=== PATIENT | male | born 1995 | race Caucasian/White ===

== ENCOUNTER 2017-12-18 20:11 | Emergency (ER) | payer MEDICAID ==
[~2017-12-18] VITALS: Ht 177.8 cm; Wt 59.9 kg
[2017-12-18 20:15] VITALS: BP 136/70
--- NOTE | 2017-12-18 20:29 | NUR ---
Patient ambulated to chair D. RN evaluating patient.
--- NOTE | 2017-12-18 21:04 | NUR ---
Dr. Benson evaluating patient.
[2017-12-18] MEDS ORDERED: CLINDAMYCIN 150 MG CAP PO ONE (21:15)
[2017-12-18] MEDS ORDERED: IBUPROFEN 600 MG TAB PO ONE (21:15)
[2017-12-18] MEDS ORDERED: HYDROcodone/APAP 10/325 MG 1 TAB TAB PO STA (21:15)
--- NOTE | 2017-12-18 21:54 | NUR ---
Patient discharged with v/s stable. Written and verbal after care instructions given and explained. Patient alert, oriented and verbalized understanding of instructions. Ambulatory with steady gait. All questions addressed prior to discharge. ID band removed. Patient advised to follow up with PMD. Rx of NORCO5/325 MG. MOTRIN 600 MG, CLINDAMYCIN 300 MG given. Patient educated on indication of medication including possible reaction and side effects. Opportunity to ask questions provided and answered.
[2017-12-18 21:55] VITALS: BP 125/77
== END 2017-12-18 21:54 | disposition home or self-care (01) ==
LOC: MED 20:11
DX: K04.7 Periapical abscess without sinus (principal); R03.0 Elevated blood-pressure reading, without diagnosis of hypertension; J45.909 Unspecified asthma, uncomplicated
CPT/HCPCS: 99284

== ENCOUNTER 2023-04-28 17:34 | Emergency (ER) | payer MEDICAID ==
[~2023-04-28] VITALS: Ht 180.3 cm; Wt 69.1 kg
[2023-04-28] MEDS ORDERED: NACL 0.9% 1,000 ML IV ONE (17:45)
[2023-04-28] MEDS ORDERED: LORazepam 2 MG/ML VIAL IVP ONE (17:45)
[2023-04-28 17:48] VITALS: BP 128/64; PULSE 90; RESP 20; TEMP 96.8; O2SAT 95
[2023-04-28 18:11] LABS: BASOPHILS % (AUTO) 0.2 % (0.0-2.0); HEMATOCRIT 45.4 % (36-52); HEMOGLOBIN 15.6 g/dL (12.0-18.0); LYMPHOCYTES # (AUTO) 0.8 K/uL (2.0-11.5); LYMPHOCYTES % (AUTO) 10.6 % (20.5-51.1); MEAN CORPUSCULAR HEMOGLOBIN 30 pg (27-31); MEAN CORPUSCULAR HGB CONC 34 g/dL (33-37); MEAN CORPUSCULAR VOLUME 87.8 fL (80-94); MONOCYTES # (AUTO) 0.1 K/uL (0.8-1.0); MONOCYTES % (AUTO) 1.1 % (1.7-9.3); NEUTROPHILS # (AUTO) 6.5 K/uL (1.8-7.7); NEUTROPHILS % (AUTO) 88.1 % (42.2-75.2); PLATELET COUNT (AUTO) 248 K/uL (140-450); RED BLOOD CELL COUNT(AUTO) 5.17 MIL/uL (4.20-6.10); WHITE BLOOD COUNT (AUTO) 7.3 K/uL (4.8-10.8)
[2023-04-28 18:39] LABS: ALANINE AMINOTRANSFERASE 19 U/L (12-78); ALBUMIN 4.4 g/dL (3.4-5.0); ALKALINE PHOSPHATASE 63 U/L (50-136); ANION GAP 14.9 (8-16); ASPARTATE AMINOTRANSFERASE 34 U/L (15-37); CALCIUM 9.8 mg/dL (8.5-10.1); CARBON DIOXIDE 27.9 mmol/L (21-32); CHLORIDE 100 mmol/L (98-107); CREATININE 1.2 mg/dL (0.6-1.3); GFR ARICAN-AMERICAN 94 mL/min (>90); GFR NON ARICAN-AMERICAN 78 mL/min (>90); GLUCOSE 152 mg/dL (74-106); POTASSIUM 3.8 mmol/L (3.5-5.1); SODIUM SERUM 139 mmol/L (136-145); TOTAL BILIRUBIN 0.6 mg/dL (0.0-1.0); TOTAL PROTEIN, SERUM 9.2 g/dL (6.4-8.2); UREA NITROGEN, BLOOD 10 mg/dL (7-18)
[2023-04-28 18:53] LABS: ALCOHOL, BLOOD < 3 mg/dL (<10)
[2023-04-28] MEDS ORDERED: LORazepam 2 MG/ML VIAL ONE (19:31)
[2023-04-28 20:15] VITALS: BP 124/72; PULSE 85; RESP 18; TEMP 97.2; O2SAT 98
== END 2023-04-28 20:15 | disposition home or self-care (01) ==
LOC: MED 17:34
DX: R53.1 Weakness (principal); E86.0 Dehydration; R11.0 Nausea; F10.239 Alcohol dependence with withdrawal, unspecified; J45.909 Unspecified asthma, uncomplicated; Y90.0 Blood alcohol level of less than 20 mg/100 ml
CPT/HCPCS: 36415; 80053; 85025; 96361; 96374; 99283; G0482; J2060; J7030